=== PATIENT | female | born 1970 | race African-American/Black ===

== ENCOUNTER 2019-01-28 21:24 | Inpatient (IN) | payer OTHER ==
[2019-01-28] MEDS ORDERED: ACETAMINOPHEN 1000 MG/100 ML VIAL (NON FORMULARY) IVPB ONE (21:40)
--- NOTE | 2019-01-28 21:52 | PDOC ---
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 She states she fell forward on to her knees in her hotel room. Denies hitting her head, LOC, or feeling dizzy before or after. She endorses severe, left knee pain that is sharp, radiates down her leg , is constant, is exacerbated with movement and touch and not alleviated by anything she can identify She states she has not been able to stand since her fall. She denies recent illness, fevers/chills, chest pain, trouble breathing, abdominal pain, N/V/C/D PMH: HTN, asthma PSH: neck fusion? Meds: Oxy, inhaler SH: Smokes 1/2 ppd, social EtOH, denies illicit drug use 01/28/19 21:51 Past History - Past Medical History Allergies/Adverse Reactions: Allergies Allergy/AdvReac Type Severity Reaction Status Date / Time ibuprofen [From Motrin] Allergy Unknown Verified 01/28/19 21:59 hydromorphone [From Dilaudid] Allergy Verified 01/28/19 21:59 Home Medications: Ambulatory Orders Acetaminophen [Tylenol -] 500 mg PO PRN 01/28/19 Albuterol Sulfate [Proair Hfa] 8.5 gm IH PRN 01/28/19 Aspirin 81 mg PO DAILY 01/28/19 Clonidine HCl 0.2 mg PO DAILY 01/28/19 Gabapentin [Neurontin -] 0 mg PO DAILY 01/28/19 Oxycodone HCl 30 mg PO QID 01/28/19 Pregabalin [Lyrica -] 50 mg PO BID 01/28/19 Review of Systems - Review of Systems Able to Perform ROS?: Yes Comments:: GENERAL/CONSTITUTIONAL: No fever or chills. No weakness HEAD, EYES, EARS, NOSE AND THROAT: No change in vision. No change in hearing. No sore throat CARDIOVASCULAR: No chest pain or shortness of breath RESPIRATORY: Denies cough, hemoptysis GASTROINTESTINAL: No nausea, vomiting, diarrhea or constipation GENITOURINARY: No dysuria, frequency, or change in urination SKIN: No rash NEUROLOGIC: No headache, vertigo, loss of consciousness, or change in strength/ sensation ENDOCRINE: No increased thirst. No abnormal weight change HEMATOLOGIC/LYMPHATIC: No anemia, easy bleeding, or history of blood clots ALLERGIC/IMMUNOLOGIC: No hives or skin allergy 01/28/19 22:21 Is the patient limited German proficient: No *Physical Exam - Vital Signs 01/28/19 22:22 - Physical Exam Comments: GENERAL: Awake, alert, and oriented to person/place/time, in moderate distress HEAD: No signs of trauma, normocephalic, atraumatic EYES: PERRLA, EOMI, sclera anicteric, conjunctiva clear ENT: Hearing grossly normal, nares patent, oropharynx clear without exudates. Moist mucosa LUNGS: No distress, speaks in full sentences, clear to auscultation bilaterally HEART: Regular rate and rhythm, normal S1 and S2, no murmurs appreciated, peripheral pulses normal and equal bilaterally ABDOMEN: Soft, nontender, normoactive bowel sounds. No guarding, no rebound EXTREMITIES: Left knee, distal tib/fib, and left hallux TTP; Pt able to move digits. Unable to straight leg raise on left. No obvious deformity. RLE strength 5/5. BUE strength 5/5. NEUROLOGICAL: Cranial nerves II through XII grossly intact. Normal speech, sensation to light touch equal and intact throughout SKIN: Warm, Dry, no open wounds or abrasions 01/28/19 22:23 ED Treatment Course - LABORATORY CBC & Chemistry Diagram: 01/28/19 22:00 01/28/19 22:00 - RADIOLOGY Radiology Studies Ordered: Category Date Time Status ANKLE & FOOT-LEFT* [RAD] Stat Radiology 01/28/19 21:38 Ordered FEMUR-LEFT [RAD] Stat Radiology 01/28/19 21:38 Ordered KNEE 3 POS-LEFT [RAD] Stat Radiology 01/28/19 21:38 Ordered LEG TIB/FIB-LEFT [RAD] Stat Radiology 01/28/19 21:38 Ordered Medical Decision Making - Medical Decision Making The pt is a 48F w/ a history of HTN and asthma who presents s/p mechanical fall from standing with left knee pain and left foot pain ED Course Fentanyl 25mcg and Tylenol 1g IV for pain XR of pelvis, femur, knee, tib/fib, ankle, and foot -Initial read w/o evidence of acute fx -Will obtain CTA w/ b/l run off to evaluate for vascular integrity given L relative to R coolness to touch 01/28/19 22:27 Lytes wnl No SANJAY LFTs wnl No anemia Leukocytosis to 17, possibly reactive -Consider septic joint, but symptoms acute and only after fall today Pt continues to have pain s/p Morphine 4mg. Will re-dose Fentanyl 50mcg CT w/ left lateral tibial plateau fx KI placed Othopedics consulted, initial advice to discharge pt. However, pt's pain is intractable and pt does not live here/does not have someone to assist her with mobility/ADLs. 01/29/19 01:49 Pt signed out to [facility] Admitting 01/29/19 03:20 *DC/Admit/Observation/Transfer Diagnosis at time of Disposition: Fracture of left tibial plateau Qualifiers: Encounter type: initial encounter Fracture type: closed Qualified Code(s): S82.142A - Displaced bicondylar fracture of left tibia, initial encounter for closed fracture - Discharge Dispostion Condition at time of disposition: Fair Decision to Admit order: Yes - Referrals - Patient Instructions - Post Discharge Activity
[2019-01-28 22:17] LABS: BASO % 0.2 % (0-2.0); EOS % 1.9 % (0-4.5); HEMATOCRIT 42.3 % (32.4-45.2); HEMOGLOBIN 14.2 GM/dL (10.7-15.3); MCH 30.3 pg (25.7-33.7); MCHC 33.7 g/dl (32.0-36.0); MEAN CELL VOLUME 89.9 fl (80-96); MEAN PLT VOLUME 8.3 fl (7.5-11.1); MONO % 7.2 % (3.8-10.2); NEUT % 73.7 % (42.8-82.8); PLATELET COUNT 350 K/MM3 (134-434); RBC 4.71 M/mm3 (3.60-5.2); RDW 14.7 % (11.6-15.6); WHITE BLOOD COUNT 17.1 K/mm3 (4.0-10.0)
[2019-01-28 22:24] LABS: INR 1.18 (0.83-1.09)
[2019-01-28 22:27] LABS: ACTIVATED PTT 29.9 SECONDS (25.2-36.5)
[2019-01-28 23:09] LABS: ALBUMIN 3.8 g/dl (3.4-5.0); BILIRUBIN,TOTAL 0.4 mg/dL (0.2-1); BLOOD UREA NITROGEN 6.3 mg/dL (7-18); CALCIUM 9.4 mg/dL (8.5-10.1); CREATININE 0.8 mg/dL (0.55-1.3); POTASSIUM 3.5 mmol/L (3.5-5.1); TOT PROT 7.3 g/dl (6.4-8.2)
--- NOTE | 2019-01-28 23:19 | PDOC ---
Documentation entered by Ariel Tejeda SCRIBE, acting as scribe for Kelsi Vargas MD. Kelsi Vargas MD: This documentation has been prepared by the taniaeNikhil Elijah, SCRIBE, under my direction and personally reviewed by me in its entirety. I confirm that the documentation accurately reflects all work, treatment, procedures, and medical decision making performed by me. Attending Attestation - Resident Resident Name: Sebastian Jenkins - ED Attending Attestation I have performed the following: I have examined & evaluated the patient, The case was reviewed & discussed with the resident, I agree w/resident's findings & plan - HPI HPI: 01/28/19 22:03 Patient is a 48 year old female with a significant past medical history of HTN who presents to the injury s/p fall. Patient reports she was in a hotel visiting her children when she fell onto her left knee. Allergies: Ibuprofen Surgical Hx: Multiple in Neck, Hip and lower Back. - Physicial Exam PE: 01/28/19 22:06 GENERAL: Awake, alert, and fully oriented HEAD: No signs of trauma EYES: PERRLA, EOMI, sclera anicteric, conjunctiva clear ENT: Auricles normal inspection, hearing grossly normal, nares patent, oropharynx clear without exudates. Moist mucosa NECK: Normal ROM, supple, no lymphadenopathy, JVD, or masses LUNGS: Breath sounds equal, clear to auscultation bilaterally. No wheezes, and no crackles HEART: Regular rate and rhythm, normal S1 and S2, no murmurs, rubs or gallops ABDOMEN: Soft, nontender, normoactive bowel sounds. No guarding, no rebound. No masses EXTREMITIES: +No deformity at B/L lower Extremities. + Lateral L-Knee minimal edema at lower outer quadrant. NEUROLOGICAL: Cranial nerves II through XII grossly intact. Normal speech, normal gait SKIN: Warm, Dry, normal turgor, no rashes or lesions noted. - Medical Decision Making 01/28/19 22:26 Pt has a normal looking LLE; no deformities; good pulses. Slight color change at the ankle. Slightly dusky, for which we will get a CTA with runoff. However , she has warmth as well as good pulses bilat. She has normal XRAYS of pelvsi, tib/fib, and knee and ankle. Pt has elevated WBC, but normal rest of CBC. We had ordered an MRI, however, pt failed the checklist. She has placed in her spine/head area. We will defer the MRI 01/28/19 23:19 Pt has normal labs; she will get the CTA with runoff. 01/29/19 01:25 CT scan shows a tibila plateau fracture on the left side. 01/29/19 01:31 We are awaiting official report of CT scan and we are calling orthopedist. 01/29/19 02:00 Patient Name: ANNE MARIE CONNOR THIS IS A PRELIMINARY REPORT FROM [facility] DATE OF SERVICE: 2019-01-29 00:11:38 IMAGES: [id number] EXAM: CTA ABDOMEN AND PELVIS and CTA LOWER EXTREMITY (RIGHT) and CTA LOWER EXTREMITY (LEFT) ABDOMEN AND PELVIS Patent aorta, celiac artery, SMA, JACKELYN, renal, and iliac arteries. Minimal atherosclerotic calcification distal abdominal aorta. No bowel obstruction, colitis, free fluid or free air. Normal appendix. At least one diverticulum sigmoid colon Unremarkable pancreas, kidneys and gallbladder. 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 01/29/19 03:17 pt given multiple dosses of fentanyl; still in pain. Morphine doesn't help her. Ofirmev given. We will not give toradol, as she has hemarthrosis.
[2019-01-29] MEDS ORDERED: morphine CARPU-JECT 4 MG/1 ML DISP.SYRIN IVPUSH ONE (01:11)
[2019-01-29] MEDS ORDERED: morphine SULFATE 4 MG/ML VIAL ONE (01:15)
[2019-01-29] MEDS ORDERED: MORPHINE SULFATE 2 MG/ML VIAL IVPUSH PRN (02:35)
[2019-01-29] MEDS ORDERED: ALBUTEROL SO4 8 GM HFA INHALER IH PRN (02:45)
--- NOTE | 2019-01-29 02:51 | HP ---
CHIEF COMPLAINT: s/p mechanical fall PCP: ([place]) HISTORY OF PRESENT ILLNESS: 48 y/o female with PMH of HTN. asthma, chronic pain 2/2 herniated discs presents to the ED /p mechanical fall- she is currently staying at a hotel visiting her family when she was chasing after granddaughter, tripped on the carpet because it was not nailed down all the way and she was wearing flip flops and she tripped faill on her left sdie and she heard her knee crack, she denies any LOC, she did not hit her head, nor was she having any prodromal symptoms leading up up to the fall- she tried to get up however she could not and she was laying on the carpet for around an hour before EMS was called. she denies having any fevers/chills/n/v or dizziness ER course was notable for: (1)vitals wnl (2)cbc 17 (3)xray shows left tibial plateau fracture (40 given fentanyl x2, morphine, tylneol knee is in brace Recent Travel: denies PAST MEDICAL HISTORY: see above PAST SURGICAL HISTORY: spinal fusion surgery in the past Social History: Smoking:smokes 1 pack every few days Alcohol:denies Drugs: occasional cocaine use; last use was yesterday (1 snort in each nostril) Family History: mother from [place], father has DM, brother from HIV, sister from brain aneurysm Allergies ibuprofen [From Motrin] Allergy (Unknown, Verified 01/28/19 21:59) hydromorphone [From Dilaudid] Allergy (Verified 01/28/19 21:59) HOME MEDICATIONS: Home Medications Medication Instructions Recorded Acetaminophen [Tylenol -] 500 mg PO PRN 01/28/19 Albuterol Sulfate [Proair Hfa] 8.5 gm IH PRN 01/28/19 Aspirin 81 mg PO DAILY 01/28/19 Clonidine HCl 0.2 mg PO DAILY 01/28/19 Gabapentin [Neurontin -] 0 mg PO DAILY 01/28/19 Oxycodone HCl 30 mg PO QID 01/28/19 Pregabalin [Lyrica -] 50 mg PO BID 01/28/19 REVIEW OF SYSTEMS CONSTITUTIONAL: Absent: fever, chills, diaphoresis, generalized weakness, malaise, loss of appetite, weight change HEENT: Absent: rhinorrhea, nasal congestion, throat pain, throat swelling, difficulty swallowing, mouth swelling, ear pain, eye pain, visual changes CARDIOVASCULAR: Absent: chest pain, syncope, palpitations, irregular heart rate, lightheadedness , peripheral edema RESPIRATORY: Absent: cough, shortness of breath, dyspnea with exertion, orthopnea, wheezing, stridor, hemoptysis GASTROINTESTINAL: Absent: abdominal pain, abdominal distension, nausea, vomiting, diarrhea, constipation, melena, hematochezia GENITOURINARY: Absent: dysuria, frequency, urgency, hesitancy, hematuria, flank pain, genital pain MUSCULOSKELETAL: Present: left knee pain Absent: myalgia, arthralgia, joint swelling, back pain, neck pain SKIN: Absent: rash, itching, pallor HEMATOLOGIC/IMMUNOLOGIC: Absent: easy bleeding, easy bruising, lymphadenopathy, frequent infections ENDOCRINE: Absent: unexplained weight gain, unexplained weight loss, heat intolerance, cold intolerance NEUROLOGIC: Absent: headache, focal weakness or paresthesias, dizziness, unsteady gait, seizure, mental status changes, bladder or bowel incontinence PSYCHIATRIC: Absent: anxiety, depression, suicidal or homicidal ideation, hallucinations. PHYSICAL EXAMINATION Vital Signs - 24 hr 01/28/19 01/29/19 22:16 01:34 Temperature 98.3 F Pulse Rate 116 H Pulse Rate [ 104 H Left Radial] Respiratory 20 24 H Rate Blood Pressure 149/85 Blood Pressure 141/91 [Left Arm] O2 Sat by Pulse 100 98 Oximetry (%) GENERAL: Awake, alert, and fully oriented, in acute distress, sobbing in pain. EYES:PEERLA; EOMI: no scleral icterus NECK: no JVD; no lymphadenopathy LUNGS:CTA B/L; no rales, rhonchi or wheezing HEART: Regular rate and rhythm, normal S1 and S2 without murmur, rub or gallop. ABDOMEN: Soft, nontender, not distended, normoactive bowel sounds, no guarding, no rebound, no masses. No hepatomegaly or splenomegaly. MUSCULOSKELETAL: Normal range of motion at all joints. No bony deformities or tenderness. No CVA tenderness. EXTREMITIES: left lower extremity in brace; very tender to touch; patient able to move toes and has sensation, slight swelling around knee cap but no surrounding erythema PSYCHIATRIC: Cooperative. Good eye contact. Appropriate mood and affect. SKIN: Warm, dry, normal turgor, no rashes or lesions noted, normal capillary refill. Laboratory Results - last 24 hr 01/28/19 01/28/19 01/28/19 22:00 22:00 22:00 WBC 17.1 H RBC 4.71 Hgb 14.2 Hct 42.3 MCV 89.9 MCH 30.3 MCHC 33.7 RDW 14.7 Plt Count 350 MPV 8.3 Absolute Neuts (auto) 12.6 H Neutrophils % 73.7 Lymphocytes % 17.0 Monocytes % 7.2 Eosinophils % 1.9 Basophils % 0.2 Nucleated RBC % 0 PT with INR 14.00 H INR 1.18 H PTT (Actin FS) 29.9 Sodium 140 Potassium 3.5 Chloride 102 Carbon Dioxide 27 Anion Gap 10 BUN 6.3 L Creatinine 0.8 Est GFR (CKD-EPI)AfAm 99.63 Est GFR (CKD-EPI)NonAf 85.96 Random Glucose 108 H Calcium 9.4 Total Bilirubin 0.4 AST 35 ALT 26 Alkaline Phosphatase 78 Total Protein 7.3 Albumin 3.8 Blood Type Antibody Screen 01/28/19 22:00 WBC RBC Hgb Hct MCV MCH MCHC RDW Plt Count MPV Absolute Neuts (auto) Neutrophils % Lymphocytes % Monocytes % Eosinophils % Basophils % Nucleated RBC % PT with INR INR PTT (Actin FS) Sodium Potassium Chloride Carbon Dioxide Anion Gap BUN Creatinine Est GFR (CKD-EPI)AfAm Est GFR (CKD-EPI)NonAf Random Glucose Calcium Total Bilirubin AST ALT Alkaline Phosphatase Total Protein Albumin Blood Type O POSITIVE Antibody Screen Negative ASSESSMENT/PLAN: 48 y/o female with PMH of HTN. asthma, chronic pain 2/2 herniated discs presents to the ED /p mechanical fall found to have a left tibial plateau fracture #Left Tibial Plateau fracture ortho consulted; no surgery needed -PT eval -oxycodone 5 q6H -bowel regimen -keep brace on knee -ice packs PRN -monitor pain control #HTN c/w clonidine #Asthma not in acute exacerbation -c/w albuterol inhaler #Chronic Pain c/w gabapentin and lyrica F/E/N not on fluids monitor electrolytes sodium controlled diet dvt ppx: lovenox Visit type - Emergency Visit Emergency Visit: Yes ED Registration Date: 01/29/19 Care time: The patient presented to the Emergency Department on the above date and was hospitalized for further evaluation of their emergent condition. - New Patient This patient is new to me today: Yes Date on this admission: 01/29/19 - Critical Care Critical Care patient: No ATTENDING PHYSICIAN STATEMENT I saw and evaluated the patient. I reviewed the resident's note and discussed the case with the resident. I agree with the resident's findings and plan as documented. SUBJECTIVE: OBJECTIVE: ASSESSMENT AND PLAN:
[2019-01-29] MEDS ORDERED: LIDOCAINE 5% TOPICAL PATCH TP ONE (03:21)
[2019-01-29] MEDS ORDERED: LIDOCAINE 5% TOPICAL PATCH ONE (03:23)
[2019-01-29] MEDS ORDERED: LORazepam 2 MG/ML SDV VIAL ONE (03:23)
--- NOTE | 2019-01-29 03:46 | PN ---
Teaching Attending Note Name of Resident: Maddie Nash ATTENDING PHYSICIAN STATEMENT I saw and evaluated the patient. I reviewed the resident's note and discussed the case with the resident. I agree with the resident's findings and plan as documented. Seen and examined; please refer to resident note for further historical information. Briefly, this is a 48 y/o female presenting to the ER with a CC of pain following mechanical fall found to have a tibial plateau fracture. She was given fentanyl, MSO4, and APAP without relief of pain. Case discussed with ortho who recommended bracing, splinting with discharge and followup. She will be brought to medicine VS, labs, imaging reviewed NAD, AAO, resting in bed RRR s1/2 no mgr Lungs CTAB, w/ sym exp NT ND +BS PTP affected knee with minimal edema CN2-12 wnl, no fnd XR reviewed, EKG reviewed ASSESSMENT AND PLAN: Presents with tibial plateau fx following mechanical fall. Orthopedics recommended discharge per documentation # Uncontrolled pain PRN PO medication with percocet; PRN laxatives # Chronic pain Has bottles of lyrica and gabapentin; confirm with pharmacy # Asthma No exacerbation; PRN albuterol # Obesity Weight loss recommended
[2019-01-29 04:30] VITALS: BMI 24.7
[2019-01-29] MEDS: oxyCODONE HCL 5 MG TABLET PO PRN ×3 (05:39→18:53)
[2019-01-29] MEDS: PREGABALIN 50 MG CAPSULE PO SCH ×2 (09:48→22:29)
[2019-01-29] MEDS: cloNIDine HCL 0.1 MG TABLET PO SCH (09:48)
[2019-01-29] MEDS: ENOXAPARIN NA (PORCINE) 40 MG/0.4 ML DISP.SYRIN SQ SCH (09:48)
[2019-01-29] MEDS: ASPIRIN 81 MG CHEWABLE TABLETS PO SCH (09:48)
[2019-01-29] MEDS: GABAPENTIN 100 MG CAPSULE (FP) PO SCH (09:49)
--- NOTE | 2019-01-29 09:59 | CONSULT ---
Consult Consult Specialty:: orthopedics - History of Present Illness Chief Complaint: left leg pain History of Present Illness: 48y/o female c/o left leg pain which began yesterday after she tripped on a carpet after chasing her granddaughter. She was taken to the hospital and had xrays and was diagnosed with a tibial plateau fracture. She was placed in a knee immobilizer which she has taken off multiple times according to the nursing staff. She continue to have pain in the leg. There are no other associated, aggravating or relieving factors. - History Source History Provided By: Patient, Medical Record Limitations to Obtaining History: No Limitations - Alcohol/Substance Use Hx Alcohol Use: No - Smoking History Smoking history: Current every day smoker Have you smoked in the past 12 months: Yes Aproximately how many cigarettes per day: 10 Home Medications - Allergies Allergies/Adverse Reactions: Allergies Allergy/AdvReac Type Severity Reaction Status Date / Time ibuprofen [From Motrin] Allergy Unknown Verified 01/28/19 21:59 hydromorphone [From Dilaudid] Allergy Verified 01/28/19 21:59 - Home Medications Home Medications: Ambulatory Orders Acetaminophen [Tylenol -] 500 mg PO PRN 01/28/19 Albuterol Sulfate [Proair Hfa] 8.5 gm IH PRN 01/28/19 Aspirin 81 mg PO DAILY 01/28/19 Clonidine HCl 0.2 mg PO DAILY 01/28/19 Gabapentin [Neurontin -] 0 mg PO DAILY 01/28/19 Oxycodone HCl 30 mg PO QID 01/28/19 Pregabalin [Lyrica -] 50 mg PO BID 01/28/19 Review of Systems - Review of Systems Constitutional: reports: No Symptoms Eyes: reports: No Symptoms HENT: reports: No Symptoms Neck: reports: No Symptoms Cardiovascular: reports: No Symptoms Respiratory: reports: No Symptoms Gastrointestinal: reports: No Symptoms Genitourinary: reports: No Symptoms Breasts: reports: No Symptoms Reported Musculoskeletal: reports: Extremity Pain Integumentary: reports: No Symptoms Neurological: reports: No Symptoms Endocrine: reports: No Symptoms Hematology/Lymphatic: reports: No Symptoms Psychiatric: reports: No Symptoms Physical Exam Vital Signs: Vital Signs Temperature 97.8 F 01/29/19 09:49 Pulse Rate 113 H 01/29/19 09:49 Respiratory Rate 20 01/29/19 09:49 Blood Pressure 125/66 01/29/19 09:49 O2 Sat by Pulse Oximetry (%) 100 01/29/19 03:07 Constitutional: Yes: Well Nourished, No Distress, Calm Musculoskeletal: Yes: Other Labs: CBC, BMP 01/28/19 22:00 01/28/19 22:00 Imaging - Results X-ray: Report Reviewed, Image Reviewed (Nondisplaced tibial plateau fracture) Assessment/Plan #1 Left tibial plateau fracture -Discussed today's findings and treatment options with the patient. I have recommend a knee immoblizer and non weight bearing left lower extremity and ambulation with crutches. Follow up in 1-2 weeks as outpatient. She states she is going to see her surgeon in [place]. May be discharged from orthopedic standpoint.
--- NOTE | 2019-01-29 10:46 | DS ---
Physical Exam: SUBJECTIVE: Patient seen and examined. refused to be examined. states she has not been seen by any doctor and would refuse to acknowledge that I was her doctor here even after several times of introducing myself. refused to engage in conversation with me. states she wants to leave and follow up with her orthopedic surgeon OBJECTIVE: Vital Signs Period Temp Pulse Resp BP Sys/Villarreal Pulse Ox Last 24 Hr 97.8 F-98.3 F 100-116 18-24 120-149/66-91 98-100 PHYSICAL EXAM refused physical exam LABS Laboratory Results - last 24 hr 01/28/19 01/28/19 01/28/19 22:00 22:00 22:00 WBC 17.1 H RBC 4.71 Hgb 14.2 Hct 42.3 MCV 89.9 MCH 30.3 MCHC 33.7 RDW 14.7 Plt Count 350 MPV 8.3 Absolute Neuts (auto) 12.6 H Neutrophils % 73.7 Lymphocytes % 17.0 Monocytes % 7.2 Eosinophils % 1.9 Basophils % 0.2 Nucleated RBC % 0 PT with INR 14.00 H INR 1.18 H PTT (Actin FS) 29.9 Sodium 140 Potassium 3.5 Chloride 102 Carbon Dioxide 27 Anion Gap 10 BUN 6.3 L Creatinine 0.8 Est GFR (CKD-EPI)AfAm 99.63 Est GFR (CKD-EPI)NonAf 85.96 Random Glucose 108 H Calcium 9.4 Total Bilirubin 0.4 AST 35 ALT 26 Alkaline Phosphatase 78 Total Protein 7.3 Albumin 3.8 Blood Type Antibody Screen 01/28/19 22:00 WBC RBC Hgb Hct MCV MCH MCHC RDW Plt Count MPV Absolute Neuts (auto) Neutrophils % Lymphocytes % Monocytes % Eosinophils % Basophils % Nucleated RBC % PT with INR INR PTT (Actin FS) Sodium Potassium Chloride Carbon Dioxide Anion Gap BUN Creatinine Est GFR (CKD-EPI)AfAm Est GFR (CKD-EPI)NonAf Random Glucose Calcium Total Bilirubin AST ALT Alkaline Phosphatase Total Protein Albumin Blood Type O POSITIVE Antibody Screen Negative HOSPITAL COURSE: Date of Admission:01/29/19 Date of Discharge: 01/29/19 admitting diagnosis: L tibial fracture Pre hospital course 48 y/o female with PMH of HTN. asthma, chronic pain 2/2 herniated discs presents to the ED /p mechanical fall- she is currently staying at a hotel visiting her family when she was chasing after granddaughter, tripped on the carpet because it was not nailed down all the way and she was wearing flip flops and she tripped faill on her left sdie and she heard her knee crack, she denies any LOC, she did not hit her head, nor was she having any prodromal symptoms leading up up to the fall- she tried to get up however she could not and she was laying on the carpet for around an hour before EMS was called. she denies having any fevers/chills/n/v or dizziness Subsequent hospital course observed for pain control. seen by ortho and said no surgery. NWB to leg on crutches. pain control with home medications. refused to discuss with me or allow my exam. was d/c with follow up with ortho Minutes to complete discharge: 40 Discharge Summary Reason For Visit: FRACTURE OF LEFT TIBIAL PLATEAU, HYPERTENSION, Current Active Problems Fracture of left tibial plateau (Acute) Asthma (Chronic) HTN (hypertension) (Chronic) Herniated disc (Chronic) - Instructions Diet, Activity, Other Instructions: You came to the hospital due to your pain after fracturing your leg. Your leg has been placed in an immobolizer and should remain in that until informed by the orthopedic surgeon. Do not put weight on your leg during this time Ambulate with crutches Continue with your pain medications to control your pain. You will need to follow up with an orthopedic surgeon in 1 week to evaluate your leg and you will liekly require further imaging to determine if intervention is necessary. Information on the one you saw here has been provided Follow up with your medical doctor in 1 week. If you do not have one information on the one you saw here has been provided Referrals: Esteban Adkins MD [Staff Physician] - Disposition: HOME - Home Medications Comprehensive Discharge Medication List: Ambulatory Orders Acetaminophen [Tylenol .Extra-Strength -] 500 mg PO PRN 01/28/19 Albuterol Sulfate [Proair Hfa] 8.5 gm IH PRN 01/28/19 Aspirin 81 mg PO DAILY 01/28/19 Clonidine HCl 0.2 mg PO DAILY 01/28/19 Gabapentin [Neurontin -] 0 mg PO DAILY 01/28/19 Oxycodone HCl 30 mg PO QID 01/28/19 Pregabalin [Lyrica -] 50 mg PO BID 01/28/19 This patient is new to me today: Yes Date on this admission: 01/29/19 Emergency Visit: Yes ED Registration Date: 01/29/19 Care time: The patient presented to the Emergency Department on the above date and was hospitalized for further evaluation of their emergent condition. Critical Care patient: No - Discharge Referral Referred to [facility] Med P.C.: No
--- NOTE | 2019-01-29 15:49 | EKG ---
Test Reason : Blood Pressure : / mmHG Vent. Rate : 115 BPM Atrial Rate : 115 BPM P-R Int : 142 ms QRS Dur : 086 ms QT Int : 456 ms P-R-T Axes : 004 056 034 degrees QTc Int : 630 ms SINUS TACHYCARDIA OTHERWISE NORMAL ECG NO PREVIOUS ECGS AVAILABLE CLINICAL CORRELATION IS RECOMMENDED BASELINE ARTIFACT Confirmed by BRAXTON REYEZ, JENNIFER ([id number]) on 01/29/2019 3:48:51 PM Referred By: Confirmed By:JENNIFER LIMON MD
[2019-01-29] MEDS ORDERED: LIDOCAINE PATCH REMOVAL MC SCH (22:00)
[2019-01-29] MEDS ORDERED: ACETAMINOPHEN 1000 MG/100 ML VIAL (NON FORMULARY) IVPB ONE (22:12)
--- NOTE | 2019-01-29 22:20 | RAPID ---
Physical Examination Vital Signs: Vital Signs Temperature 97.8 F 01/29/19 09:49 Pulse Rate 113 H 01/29/19 09:49 Respiratory Rate 20 01/29/19 09:49 Blood Pressure 125/66 01/29/19 09:49 O2 Sat by Pulse Oximetry (%) 95 01/29/19 09:00 Findings/Remarks: Rapid response called at 2205. call or contact centre operator team arrived to find the patient lying in bed, complaining of pain in her right leg. Patient states she usually takes 30mg Oxycodone for pain, and her current dose of 5mg is inadequate. No associated difficulty breathing, chest pain, or altered sensorium. First Vitals: -BP 130/44 -P 101 JERMAINE: -Pt appears to be in acute distress -RRR Assessment and Plan: -Ofiramev 1000 for pain EKG Labs: CBC, BMP 01/28/19 22:00 01/28/19 22:00
[2019-01-29] MEDS: SENNOSIDES 8.6MG TABLET (FP) PO SCH (22:33)
[2019-01-29] MEDS ORDERED: oxyCODONE HCL 5 MG TABLET PO ONE (22:38)
[2019-01-30] MEDS: oxyCODONE HCL 5 MG TABLET PO PRN ×4 (07:10→20:33)
--- NOTE | 2019-01-30 07:20 | PN ---
Teaching Attending Note Name of Resident: Mckenna Keoneliana ATTENDING PHYSICIAN STATEMENT I saw and evaluated the patient. I reviewed the resident's note and discussed the case with the resident. I agree with the resident's findings and plan as documented. SUBJECTIVE:pain is much improved today. thinks she requires surgery as the ER physician told her so. despite what orthopedic surgeon said. denies Cp, SOB, fever, chills, N/V/C/D. IBU allergy hives. 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 thighs appear to be equal B/L on gross examination. pulses 2+ ASSESSMENT AND PLAN: 48yo F with PMH HTN, asthma, herniated disc presented to the Er with leg pain after running and tripping and found to have L tibial fracture 1. L tibial fracture- due to mechanical fall. no signs of lytic or blastic lesions on CT and low suspicion for pathological fracture. seen by ortho and no recommendations for surgery at this time. pt requesting 2nd opinion. will place 2nd consult for different orthopedic group. cont brace. NWB to LLE. was unable to ambulate with crutches. will benefit from VIJAY 2. Intractable pain- due to fracture. pain now controlled. transitioned to home dose of oxycodone. would benefit from NSAID however pt declining even when alternatives to IBU offered. (allergy only hives). will cont at this time 3. HTN- controlled. cont home medications 4. herniated disc- cont neurontin and lyrica 5. DVT ppx- lovenox 6. awaiting VIJAY placement. VANDANA sent by [facility] Reference #: [id number]
[2019-01-30] MEDS: ENOXAPARIN NA (PORCINE) 40 MG/0.4 ML DISP.SYRIN SQ SCH (09:11)
[2019-01-30] MEDS: ASPIRIN 81 MG CHEWABLE TABLETS PO SCH (09:12)
[2019-01-30] MEDS: GABAPENTIN 100 MG CAPSULE (FP) PO SCH (09:12)
[2019-01-30] MEDS: PREGABALIN 50 MG CAPSULE PO SCH ×2 (09:12→21:14)
[2019-01-30] MEDS: cloNIDine HCL 0.1 MG TABLET PO SCH (09:13)
--- NOTE | 2019-01-30 11:26 | EKG ---
Test Reason : Blood Pressure : / mmHG Vent. Rate : 092 BPM Atrial Rate : 092 BPM P-R Int : 162 ms QRS Dur : 082 ms QT Int : 384 ms P-R-T Axes : -03 030 015 degrees QTc Int : 474 ms NORMAL SINUS RHYTHM POOR R WAVE PROGRESSION ABNORMAL ECG WHEN COMPARED WITH ECG OF 28-JAN-2019 22:51, NO SIGNIFICANT CHANGE IS FOUND Confirmed by BRAXTON REYEZ, JENNIFER ([id number]) on 01/30/2019 11:26:01 AM Referred By: JOSE EDUARDO SOUSA Confirmed By:JENNIFER LIMON MD
--- NOTE | 2019-01-30 13:18 | PN ---
Physical Exam: SUBJECTIVE: Patient seen and examined. Pt had rapid response called last night for pain. GIven 1g IV Tylenol w/ mild improvement of symptoms. Pt still c/o L knee pain. Ortho consulted for 2nd opinion. OBJECTIVE: Vital Signs Period Temp Pulse Resp BP Sys/Villarreal Pulse Ox Last 24 Hr 98.3 F 94 20-20 109/74 100 GENERAL: AOx3. LUNGS: Breath sounds equal, clear to auscultation bilaterally, no wheezes, no crackles, no accessory muscle use. HEART: Regular rate and rhythm, S1, S2 without murmur, rub or gallop. ABDOMEN: Soft, nontender, nondistended, normoactive bowel sounds, no guarding. EXTREMITIES: 2+ pulses, warm, well-perfused, no edema. Left knee immobilizer in place. Active Medications Generic Name Dose Route Start Last Admin Trade Name Freq PRN Reason Stop Dose Admin Albuterol Sulfate 2 puff 01/29/19 02:45 Ventolin Hfa Inhaler - IH Q4H PRN SHORTNESS OF BREATH Aspirin 81 mg 01/29/19 10:00 01/30/19 09:12 Asa - PO 81 mg DAILY KING Administration Clonidine 0.2 mg 01/29/19 10:00 01/30/19 09:13 Catapres - PO 0.2 mg DAILY KING Administration Enoxaparin Sodium 40 mg 01/29/19 10:00 01/30/19 09:11 Lovenox - SQ 40 mg DAILY KING Administration Gabapentin 100 mg 01/29/19 10:00 01/30/19 09:12 Neurontin - PO 100 mg DAILY KING Administration Oxycodone HCl 30 mg 01/30/19 07:19 01/30/19 08:43 Roxicodone - PO 30 mg Q6H PRN Administration PAIN LEVEL 4 - 6 Pregabalin 50 mg 01/29/19 10:00 01/30/19 09:12 Lyrica - PO 50 mg BID KING Administration Senna 1 tab 01/29/19 22:00 01/29/19 22:33 Senna - PO Not Given HS KING Imagin. Pelvis XR: Single AP view of the pelvis reveals no sign of fracture or subluxation and no sign of blastic or lytic changes. The SI joints are patent. There is evidence of lower LS spine fusion. There is a scoliosis with degenerative changes. There is a urine filled bladder. There is a left pelvic phlebolith. There is a nonspecific bowel pattern. If symptoms persist, further imaging and orthopedic consultation may be of help. 2. L Femur XR: 3 views of the left femur reveal no sign of a gross fracture or subluxation and no sign of blastic or lytic changes. Swelling, foreign body or soft tissue air is not seen. If symptoms persist, further imaging and orthopedic consultation may be of help. 3. L tib/fib XR: 4 views of the left tibia and fibula with a comparison view of the right and an AP projection reveal no sign of fracture or subluxation and no sign of blastic or lytic changes. Swelling, foreign body or soft tissue air is not seen. If symptoms persist, further imaging and orthopedic consultation may be of help. 4. L ankle XR: 4 views of the ankle with 2 very limited views of the foot reveal no sign of a gross fracture. There is no sign of swelling, foreign body or soft tissue air. The foot imaging is incomplete. For more complete evaluation , better imaging is needed. 5. L knee XR: 3 views of the left knee with a comparison AP view of the right reveal no sign of fracture or subluxation and no sign of blastic or lytic changes. Significant arthritic changes are not seen. There is no sign of an effusion, foreign body or soft tissue air. Swelling is not seen. If symptoms persist, further imaging may be of help. ASSESSMENT/PLAN: 48 y.o. F PMH HTN, asthma, chronic pain 2/2 herniated discs presented after a fall w/o LOC. #Nondisplaced left tibial plateau fracture -Seen by PT: Nonweight bearing LLE -Provided w. crutches however unable to ambulate w/ them -CT LLE: acute comminuted intra-articular fx lateral tibial plateau, w/ 1 fragment depressed aprrox 2mm -Ortho consulted (Dr. Smith) recommends no surgical intervention at this time -Pt requested 2nd opinion; Dr. Victor consulted #Pain control -Oxycodone 30mg PO q6h PRN (home dose) -Gabapentin 100mg PO daily for chronic pain -Pregabalin 50mg PO BID for chronic pain -Pt declining NSAIDs #HTN -Clonidine 0.2mg PO daily #Asthma -Ventolin inhaler 2puffs IH q4h PRN #FEN -No standing fluids -Monitor lytes -Na controlled diet #DVT PPX -LVX 40mg SQ daily #Dispo -Pending placement for VIJAY @ SNF Visit type - Emergency Visit Emergency Visit: No - New Patient This patient is new to me today: Yes Date on this admission: 01/30/19 - Critical Care Critical Care patient: No ATTENDING PHYSICIAN STATEMENT I saw and evaluated the patient. I reviewed the resident's note and discussed the case with the resident. I agree with the resident's findings and plan as documented. SUBJECTIVE: OBJECTIVE: ASSESSMENT AND PLAN:
[2019-01-30] MEDS: SENNOSIDES 8.6MG TABLET (FP) PO SCH (21:14)
[2019-01-31] MEDS: oxyCODONE HCL 5 MG TABLET PO PRN ×3 (02:19→14:17)
[2019-01-31] MEDS: PREGABALIN 50 MG CAPSULE PO SCH (09:13)
[2019-01-31] MEDS: ASPIRIN 81 MG CHEWABLE TABLETS PO SCH (09:13)
[2019-01-31] MEDS: ENOXAPARIN NA (PORCINE) 40 MG/0.4 ML DISP.SYRIN SQ SCH (09:13)
[2019-01-31] MEDS: GABAPENTIN 100 MG CAPSULE (FP) PO SCH (09:13)
[2019-01-31] MEDS: cloNIDine HCL 0.1 MG TABLET PO SCH (09:13)
--- NOTE | 2019-01-31 13:14 | PN ---
Teaching Attending Note Name of Resident: Melissa Arreola ATTENDING PHYSICIAN STATEMENT I saw and evaluated the patient. I reviewed the resident's note and discussed the case with the resident. I agree with the resident's findings and plan as documented. SUBJECTIVE:pain is controlled as long as she does not move. still adamant of wanting surgery. denies Cp, SOB, fever, chills, N/V/C/D OBJECTIVE: Last Vital Signs Temp Pulse Resp BP Pulse Ox 98.0 F 89 18 134/75 94 L 01/31/19 05:35 01/31/19 05:35 01/31/19 05:35 01/31/19 05:35 01/31/19 10:00 General NAD CV S1 s2 RRR no murmur/rub/gallop Lungs CTA B/L no wheezing/rales/rhonchi Extremities LLE in brace. pulses 2+ ASSESSMENT AND PLAN: 48yo F with PMH HTN, asthma, herniated disc presented to the Er with leg pain after running and tripping and found to have L tibial fracture 1. L tibial fracture- due to mechanical fall. no signs of lytic or blastic lesions on CT and low suspicion for pathological fracture. seen by ortho and no recommendations for surgery at this time. awaiting 2nd opinion. cont brace. NWB to LLE. was unable to ambulate with crutches. will benefit from VIJAY. 2. Intractable pain- due to fracture. pain now controlled. has hives with ibuprofen. willing to try alternative NSAID. will try naproxen. monitor for reaction. 3. HTN- controlled. cont home medications 4. herniated disc- cont neurontin and lyrica 5. DVT ppx- lovenox 6. awaiting VIJAY placement. VANDANA sent by JOSEPH
[2019-01-31] MEDS ORDERED: NAPROXEN 500 MG TABLET (FP) PO SCH (13:30)
--- NOTE | 2019-01-31 14:17 | DS ---
Physical Exam: SUBJECTIVE: Patient seen and examined. Pt was talking on the phone during interview/exam. She reported 10/10 pain of left knee and LE. Pt also reports itching. OBJECTIVE: Vital Signs Period Temp Pulse Resp BP Sys/Villarreal Pulse Ox Last 24 Hr 98.0 F-98.6 F 89-100 18-20 124-134/62-76 94-100 PHYSICAL EXAM GENERAL: The patient is awake, alert, and fully oriented, in no acute distress. HEAD: Normal with no signs of trauma. EYES: PERRL, extraocular movements intact, sclera anicteric, conjunctiva clear. ENT: Ears normal, nares patent, moist mucous membranes. NECK: Trachea midline, full range of motion, supple. LUNGS: Breath sounds equal, clear to auscultation bilaterally, no wheezes, no crackles, no accessory muscle use. HEART: Regular rate and rhythm, S1, S2 without murmur, rub or gallop. ABDOMEN: Soft, nontender, nondistended, normoactive bowel sounds EXTREMITIES: left leg in immobilizer; some warmth at knee, not erythematous, some swelling NEUROLOGICAL: Cranial nerves II through XII grossly intact. Normal speech, gait not observed. PSYCH: Normal mood, normal affect. SKIN: abrasions on upper body from scratching because of itching, no rashes noted LABS CBC,CMP WBC 17.1 K/mm3 (4.0-10.0) H 01/28/19 22:00 RBC 4.71 M/mm3 (3.60-5.2) 01/28/19 22:00 Hgb 14.2 GM/dL (10.7-15.3) 01/28/19 22:00 Hct 42.3 % (32.4-45.2) 01/28/19 22:00 MCV 89.9 fl (80-96) 01/28/19 22:00 MCH 30.3 pg (25.7-33.7) 01/28/19 22:00 MCHC 33.7 g/dl (32.0-36.0) 01/28/19 22:00 RDW 14.7 % (11.6-15.6) 01/28/19 22:00 Plt Count 350 K/MM3 (134-434) 01/28/19 22:00 MPV 8.3 fl (7.5-11.1) 01/28/19 22:00 Absolute Neuts (auto) 12.6 K/mm3 (1.5-8.0) H 01/28/19 22:00 Neutrophils % 73.7 % (42.8-82.8) 01/28/19 22:00 Lymphocytes % 17.0 % (8-40) 01/28/19 22:00 Monocytes % 7.2 % (3.8-10.2) 01/28/19 22:00 Eosinophils % 1.9 % (0-4.5) 01/28/19 22:00 Basophils % 0.2 % (0-2.0) 01/28/19 22:00 Nucleated RBC % 0 % (0-0) 01/28/19 22:00 Sodium 140 mmol/L (136-145) 01/28/19 22:00 Potassium 3.5 mmol/L (3.5-5.1) 01/28/19 22:00 Chloride 102 mmol/L (98-107) 01/28/19 22:00 Carbon Dioxide 27 mmol/L (21-32) 01/28/19 22:00 Anion Gap 10 MMOL/L (8-16) 01/28/19 22:00 BUN 6.3 mg/dL (7-18) L 01/28/19 22:00 Creatinine 0.8 mg/dL (0.55-1.3) 01/28/19 22:00 Est GFR (CKD-EPI)AfAm 99.63 01/28/19 22:00 Est GFR (CKD-EPI)NonAf 85.96 01/28/19 22:00 Random Glucose 108 mg/dL (74-106) H 01/28/19 22:00 Calcium 9.4 mg/dL (8.5-10.1) 01/28/19 22:00 Total Bilirubin 0.4 mg/dL (0.2-1) 01/28/19 22:00 AST 35 U/L (15-37) 01/28/19 22:00 ALT 26 U/L (13-61) 01/28/19 22:00 Alkaline Phosphatase 78 U/L (45-117) 01/28/19 22:00 Total Protein 7.3 g/dl (6.4-8.2) 01/28/19 22:00 Albumin 3.8 g/dl (3.4-5.0) 01/28/19 22:00 HOSPITAL COURSE: Ms. Nieves is a 48yo female with HTN, asthma, and chronic pain 2/2 herniated discs who presented after mechanical fall onto left knee. Pt found to have left tibial plateau fx. She preferred a second ortho opinion because she said she was told she needed surgery initially and first ortho opinion did not agree. She reported intractable pain during stay and was given home dose of oxycontin. Today she did not want second opinion anymore. She was offered rehab placement and declined. She was given crutches and her son was to pick her up at discharge. She was told to f/u with ortho and pain management. Date of Admission:01/29/19 Date of Discharge: 01/31/19 Minutes to complete discharge: 35 Discharge Summary Reason For Visit: FRACTURE OF LEFT TIBIAL PLATEAU, HYPERTENSION, Current Active Problems Fracture of left tibial plateau (Acute) Asthma (Chronic) HTN (hypertension) (Chronic) Herniated disc (Chronic) Condition: Stable - Instructions Diet, Activity, Other Instructions: Hospital Course: You came to the hospital due to your pain after fracturing your leg. Your leg has been placed in an immobolizer and should remain in immobilizer until informed by the orthopedic surgeon to stop using it. DO NOT put weight on your leg during this time. Ambulate with crutches It was recommended that you go to a facility for rehab however you declined. Recommendations: Continue with your home medications as directed. Continue taking pain medications to control your pain, as per your pain management physician. Follow up with the following physicians: You will need to follow up with an orthopedic surgeon in 1 week to evaluate your leg and you may need further imaging to determine your progress. Information on the orthopedist you saw here has been provided. Follow up with your medical doctor in 1 week. If you do not have one information on the one you saw here has been provided. Follow up with your pain management doctor within one week of discharge. Return to the nearest Emergency department if you experience worsening symptoms , fevers, chills, worsening pain. Referrals: Esteban Adkins MD [Staff Physician] - 02/02/19 Disposition: HOME - Home Medications Comprehensive Discharge Medication List: Ambulatory Orders Acetaminophen [Tylenol .Extra-Strength -] 500 mg PO PRN 01/28/19 Albuterol Sulfate [Proair Hfa] 8.5 gm IH PRN 01/28/19 Aspirin 81 mg PO DAILY 01/28/19 Clonidine HCl 0.2 mg PO DAILY 01/28/19 Gabapentin [Neurontin -] 0 mg PO DAILY 01/28/19 Oxycodone HCl 30 mg PO QID 01/28/19 Pregabalin [Lyrica -] 50 mg PO BID 01/28/19 Crutch 1 each ASDIR #1 each 01/29/19 This patient is new to me today: Yes Date on this admission: 01/31/19 Emergency Visit: Yes ED Registration Date: 01/29/19 Care time: The patient presented to the Emergency Department on the above date and was hospitalized for further evaluation of their emergent condition. Critical Care patient: No - Discharge Referral Referred to [facility] Med P.C.: No ATTENDING PHYSICIAN STATEMENT I saw and evaluated the patient. I reviewed the resident's note and discussed the case with the resident. I agree with the resident's findings and plan as documented. SUBJECTIVE: OBJECTIVE: ASSESSMENT AND PLAN:
[2019-01-31 15:34] VITALS: BP 119/78; PULSE 92; TEMP 97.7
== END 2019-01-31 18:14 | disposition home or self-care (01) | DRG 342 ==
LOC: JER 21:24 → JERBED 01-29 02:25 → J6S 01-29 04:14
PROVIDERS: ADMIT Internal Medicine; ATTEND Internal Medicine
DX: S82.142A Displaced bicondylar fracture of left tibia, initial encounter for closed fracture (principal); I10 Essential (primary) hypertension; J45.909 Unspecified asthma, uncomplicated; G89.29 Other chronic pain; M41.9 Scoliosis, unspecified; F17.210 Nicotine dependence, cigarettes, uncomplicated; D72.829 Elevated white blood cell count, unspecified; W01.0XXA Fall on same level from slipping, tripping and stumbling without subsequent striking against object, initial encounter; Y92.89 Other specified places as the place of occurrence of the external cause; E66.8 Other obesity; Z68.24 Body mass index [BMI] 24.0-24.9, adult; Z72.89 Other problems related to lifestyle
CPT/HCPCS: 36415; 72170-TC-FY; 73552-TC-LT-FY; 73562-TC-LT-FY; 73590-TC-LT-FY; 73610-TC-LT-FY; 73630-TC-LT; 75635-TC; 80053; 85025; 85610; 85730; 86850; 86900; 86901; 93005; 93010; 97116-GP; 97161-GP; 99284-25; J0131; J0735

== ENCOUNTER 2022-12-06 23:53 | Inpatient (IN) | payer OTHER ==
[2022-12-07 00:26] VITALS: BMI 28.3
[2022-12-07] MEDS ORDERED: guaiFENesin 600 MG TABLET.ER (FP) PO PRN (01:16)
[2022-12-07] MEDS ORDERED: ACETAMINOPHEN 325 MG TABLET (FP) PO PRN (01:16)
[2022-12-07] MEDS ORDERED: BISMUTH SUBSALICYLATE 524 MG/30 ML PO PRN (01:16)
[2022-12-07] MEDS ORDERED: NALOXONE HCL (KLOXXADO) 8 MG SPRAY NS PRN (01:16)
[2022-12-07] MEDS ORDERED: POLYETHYLENE GLYCOL (HEALTHYLAX) 3350 17 GM PACKET PO PRN (01:16)
[2022-12-07] MEDS ORDERED: NICOTINE 10 MG CARTRIDGE (INHALER) IH PRN (01:16)
[2022-12-07] MEDS ORDERED: DICYCLOMINE HCL 10 MG CAPSULE PO PRN (01:16)
[2022-12-07] MEDS ORDERED: BENZOCAINE/MENTHOL (CHLORASEPTIC ) LOZENGE MM PRN (01:16)
[2022-12-07] MEDS ORDERED: BENZONATATE 200 MG CAPSULE PO PRN (01:16)
[2022-12-07] MEDS ORDERED: LOPERAMIDE HCL 2 MG CAPSULE PO PRN (01:16)
[2022-12-07] MEDS ORDERED: ONDANSETRON *ODT* 4 MG TABLET SL PRN (01:16)
[2022-12-07] MEDS ORDERED: NALOXONE HCL 0.4 MG/ML VIAL IM PRN (01:16)
[2022-12-07] MEDS ORDERED: MAGNESIUM HYDROX 2400MG/30ML ORAL SUSPENSION 30 ML CUP PO PRN (01:16)
[2022-12-07] MEDS ORDERED: MAG HYDROX/AL HYDROX/SIMETH 30 ML UNIT-DOSE CUP PO PRN (01:16)
[2022-12-07] MEDS ORDERED: TRIMETHOBENZAMIDE HCL 200MG/2ML INJ IM ONE ×2 (01:24→01:32)
[2022-12-07] MEDS: METHOCARBAMOL 500 MG TABLET PO PRN (01:52)
[2022-12-07] MEDS: hydrOXYzine PAMOATE 25 MG CAPSULE (FP) PO PRN (06:29)
[2022-12-07] MEDS: PRENATAL VITAMINS W/ FOLIC ACID TABLET (FP) PO SCH (10:33)
[2022-12-07] MEDS: NICOTINE 14 MG/24 HOURS TOPICAL PATCH TD SCH (10:33)
[2022-12-07] MEDS ORDERED: ALBUTEROL SO4 HFA INHALER IH PRN (13:25)
[2022-12-07] MEDS ORDERED: chlordiazePOXIDE HCL 25 MG CAPSULE PO PRN (13:37)
[2022-12-07] MEDS: chlordiazePOXIDE HCL 25 MG CAPSULE PO SCH ×2 (17:47→22:41)
[2022-12-07] MEDS: THIAMINE HCL 100 MG TABLET (FP) PO SCH (22:41)
[2022-12-07] MEDS: MELATONIN 5 MG TABLETS PO SCH (22:41)
[2022-12-07] MEDS: QUEtiapine FUMARATE 100 MG TABLET (FP) PO SCH (23:20)
[2022-12-07] MEDS: FAMOTIDINE 20 MG TABLET PO SCH (23:20)
[2022-12-08] MEDS: chlordiazePOXIDE HCL 25 MG CAPSULE PO SCH ×4 (05:56→22:30)
[2022-12-08] MEDS: PRENATAL VITAMINS W/ FOLIC ACID TABLET (FP) PO SCH (10:40)
[2022-12-08] MEDS: FAMOTIDINE 20 MG TABLET PO SCH ×2 (10:40→22:29)
[2022-12-08] MEDS: NICOTINE 14 MG/24 HOURS TOPICAL PATCH TD SCH (10:40)
[2022-12-08 11:27] LABS: HEMATOCRIT 43.3 % (32.4-45.2); HEMOGLOBIN 14.5 GM/dL (10.7-15.3); MCH 30.3 pg (25.7-33.7); MCHC 33.5 g/dl (32.0-36.0); MEAN CELL VOLUME 90.3 fl (80-96); MEAN PLT VOLUME 9.8 fl (7.5-11.1); PLATELET COUNT 316 10^3/uL (134-434); RDW 12.7 % (11.6-15.6); WHITE BLOOD COUNT 9.7 K/mm3 (4.0-10.0)
[2022-12-08 12:39] LABS: POTASSIUM 3.1 mmol/L (3.5-5.1)
[2022-12-08 12:45] LABS: CALCIUM 9.5 mg/dL (8.5-10.1)
[2022-12-08 12:47] LABS: ALBUMIN 3.6 g/dl (3.4-5.0); BLOOD UREA NITROGEN 18.2 mg/dL (7-18)
[2022-12-08 12:50] LABS: BILIRUBIN,TOTAL 0.5 mg/dL (0.2-1); TOT PROT 6.8 g/dl (6.4-8.2)
[2022-12-08] MEDS: METHOCARBAMOL 500 MG TABLET PO PRN (22:29)
[2022-12-08] MEDS: MELATONIN 5 MG TABLETS PO SCH (22:29)
[2022-12-08] MEDS: QUEtiapine FUMARATE 100 MG TABLET (FP) PO SCH (22:29)
[2022-12-08] MEDS: THIAMINE HCL 100 MG TABLET (FP) PO SCH (22:29)
[2022-12-09] MEDS: chlordiazePOXIDE HCL 25 MG CAPSULE PO SCH ×4 (05:51→21:59)
[2022-12-09] MEDS: FAMOTIDINE 20 MG TABLET PO SCH ×2 (10:25→21:59)
[2022-12-09] MEDS: hydrOXYzine PAMOATE 25 MG CAPSULE (FP) PO PRN (10:25)
[2022-12-09] MEDS: NICOTINE 14 MG/24 HOURS TOPICAL PATCH TD SCH (10:25)
[2022-12-09] MEDS: PRENATAL VITAMINS W/ FOLIC ACID TABLET (FP) PO SCH (10:25)
[2022-12-09] MEDS: POTASSIUM CHLORIDE ORAL LIQUID 20 MEQ/15 ML PO SCH ×2 (10:26→14:00)
[2022-12-09] MEDS: MELATONIN 5 MG TABLETS PO SCH (21:59)
[2022-12-09] MEDS: THIAMINE HCL 100 MG TABLET (FP) PO SCH (21:59)
[2022-12-09] MEDS: QUEtiapine FUMARATE 100 MG TABLET (FP) PO SCH (21:59)
[2022-12-10] MEDS ORDERED: chlordiazePOXIDE HCL 10 MG CAPSULE PO PRN
[2022-12-10] MEDS: chlordiazePOXIDE HCL 10 MG CAPSULE PO SCH ×2 (05:38→10:17)
[2022-12-10] MEDS: NICOTINE 14 MG/24 HOURS TOPICAL PATCH TD SCH (10:15)
[2022-12-10] MEDS: PRENATAL VITAMINS W/ FOLIC ACID TABLET (FP) PO SCH (10:16)
[2022-12-10] MEDS: FAMOTIDINE 20 MG TABLET PO SCH ×2 (10:16→22:09)
[2022-12-10] MEDS: METHOCARBAMOL 500 MG TABLET PO PRN ×2 (10:18→18:09)
[2022-12-10] MEDS: LORazepam 0.5 MG TABLET PO SCH ×2 (16:53→22:09)
[2022-12-10] MEDS: MELATONIN 5 MG TABLETS PO SCH (22:09)
[2022-12-10] MEDS: QUEtiapine FUMARATE 100 MG TABLET (FP) PO SCH (22:09)
[2022-12-10] MEDS: THIAMINE HCL 100 MG TABLET (FP) PO SCH (22:09)
[2022-12-11] MEDS ORDERED: chlordiazePOXIDE HCL 10 MG CAPSULE PO SCH (05:00)
[2022-12-11] MEDS: FAMOTIDINE 20 MG TABLET PO SCH ×2 (10:22→21:50)
[2022-12-11] MEDS: LORazepam 0.5 MG TABLET PO SCH ×2 (10:22→21:51)
[2022-12-11] MEDS: PRENATAL VITAMINS W/ FOLIC ACID TABLET (FP) PO SCH (10:22)
[2022-12-11] MEDS: METHOCARBAMOL 500 MG TABLET PO PRN ×2 (10:22→17:16)
[2022-12-11] MEDS: NICOTINE 14 MG/24 HOURS TOPICAL PATCH TD SCH (10:23)
[2022-12-11] MEDS ORDERED: METHYL SALICYLATE/MENTHOL OINT 30 GM TUBE TP PRN (11:17)
[2022-12-11] MEDS: THIAMINE HCL 100 MG TABLET (FP) PO SCH (21:51)
[2022-12-11] MEDS: QUEtiapine FUMARATE 100 MG TABLET (FP) PO SCH (21:51)
[2022-12-11] MEDS ORDERED: MELATONIN 5 MG TABLETS PO SCH (22:00)
[2022-12-11] MEDS ORDERED: METHYL SALICYLATE/MENTHOL OINT 30 GM TUBE TP SCH (22:00)
[2022-12-12] MEDS ORDERED: chlordiazePOXIDE HCL 10 MG CAPSULE PO ONE (05:00)
[2022-12-12] MEDS ORDERED: LORazepam 0.5 MG TABLET PO ONE (06:00)
[2022-12-12 09:33] VITALS: BP 147/88; PULSE 102; RESP 20; TEMP 98
[2022-12-12] MEDS: FAMOTIDINE 20 MG TABLET PO SCH (10:17)
[2022-12-12] MEDS: PRENATAL VITAMINS W/ FOLIC ACID TABLET (FP) PO SCH (10:17)
[2022-12-12] MEDS: NICOTINE 14 MG/24 HOURS TOPICAL PATCH TD SCH (10:17)
== END 2022-12-12 10:37 | disposition other institution (70) | DRG 775 ==
LOC: YASAS 23:53 → Y6N 12-07 02:15
PROVIDERS: ADMIT Allergy & Immunology; ATTEND Surgery
PROC: HZ2ZZZZ Detoxification Services for Substance Abuse Treatment (ICD-10-PCS; principal; 2022-12-07)
DX: F10.230 Alcohol dependence with withdrawal, uncomplicated (principal); F19.24 Other psychoactive substance dependence with psychoactive substance-induced mood disorder; F25.9 Schizoaffective disorder, unspecified; F31.9 Bipolar disorder, unspecified; F41.9 Anxiety disorder, unspecified; I10 Essential (primary) hypertension; J45.909 Unspecified asthma, uncomplicated; Z88.8 Allergy status to other drugs, medicaments and biological substances
CPT/HCPCS: 36415; 80053; 81025; 84132; 85027; 86780; 87635; 87811; 93005; 93010